=== PATIENT | male | born 1935 | race Caucasian/White ===

== ENCOUNTER 2018-07-20 18:17 | Inpatient (IN) | payer MEDICARE, OTHER ==
--- NOTE | 2018-07-20 18:46 | RAD ---
Chest one view HISTORY: Cough. COMPARISON: 11/01/2010. FINDINGS: Cardiac silhouette is magnified by projection. Pulmonary vasculature is unremarkable. Media stinum is midline with aortic calcification. No lobar consolidation or evidence of pneumothorax. IMPRESSION: Atherosclerosis. No active cardiopulmonary abnormalities are otherwise demonstrated.
[2018-07-20 18:50] LABS: Hemoglobin 11.6 g/dL (14.0-18.0); Mean Corpuscular HGB CONC 33.3 g/dL (32.0-36.0); Mean Corpuscular Hemoglobin 31.2 pg (27.0-31.0); Mean Corpuscular Volume 93.8 fL (78.0-98.0); Mean Platelet Volume 7.3 fL (7.4-10.4); Platelet Count 228 thou/uL (130-400); RBC Distribution Width 12.7 % (11.5-14.5); Red Blood Cell (RBC) Count 3.72 mill/uL (4.70-6.10); White Blood Cell (WBC) Count 8.5 thou/uL (4.8-10.8)
[2018-07-20 19:05] LABS: ALT (SGPT) 29 U/L (8-55); AST (SGOT) 34 U/L (5-34); Albumin 3.5 g/dL (3.4-4.8); Alkaline Phosphatase 152 U/L (40-150); Anion Gap 13 mmol/L (10-20); BUN (Urea Nitrogen) 14 mg/dL (8.4-25.7); Bilirubin, Total 1.6 mg/dL (0.2-1.2); Calc. Creatinine Clearance 0 mL/min (70-130); Calcium 8.7 mg/dL (7.8-10.44); Carbon Dioxide 25 mmol/L (23-31); Chloride 95 mmol/L (98-107); Estimated GFR-MDRD 41; Globulin 2.9 g/dL (2.4-3.5); Glucose 123 mg/dL (83-110); Potassium 4.1 mmol/L (3.5-5.1); Protein, Total 6.4 g/dL (5.8-8.1); Sodium 129 mmol/L (136-145)
[2018-07-20 19:16] LABS: Bilirubin Negative (Negative); Blood, Urine Small (Negative); Clarity CLEAR (Clear); Glucose, Urine (Dipstick) Negative (Negative); Leukocyte Negative (Negative); Nitrite Negative (Negative); Protein, Urine (Dipstick) 100 mg/dL (Neg-Trace); Specific Gravity, Urine 1.013 (1.002-1.036); pH, Urine 7.5 (5.0-9.0)
[2018-07-20 19:20] LABS: Bacteria/HPF None Seen HPF (None Seen); Hyaline Casts/LPF 0-3 HYALINE CAST LPF (0-3 Hyaline); Squamous Epithelial None Seen HPF (0-3); WBC/HPF None Seen HPF (0-3)
[2018-07-20 19:25] LABS: Band 16 % (5-11); Lymphocytes 2 % (21-51); MDiff Complete? YES; Monocytes 2 % (0-10); Neutrophil 80 % (42-75); Platelet Morphology Comment Appears Adequate
[2018-07-20] MEDS ORDERED: Piperacillin/Tazobactam 4.5 GM VIAL ONE (20:39)
[2018-07-20] MEDS ORDERED: Acetaminophen 325 MG TAB PO PRN (23:40)
[2018-07-21 00:08] VITALS: BMI 21.8
[2018-07-21] MEDS: Sodium Chloride 0.45% 1,000 ML IV SCH ×2 (00:21→09:01)
--- NOTE | 2018-07-21 04:29 | HP ---
CHIEF COMPLAINT: Fever. HISTORY OF PRESENT ILLNESS: This patient is an 82-year-old male who presented via the emergency department. The patient was at his brother's today when he started having some shaking. The family thought it was simply emotional because of the , but when he got home, they checked his temperature, and it was over 102. He received some Tylenol and some Coricidin and subsequent check, his temperature got up over 103. They subsequently brought him to the emergency department. The patient reports that he has started coughing today. He has no chest pain, shortness of breath, or sputum production. He denies any other symptoms to account for any type of infection. He does admit that he has not been eating and drinking quite as well over the last couple of days. REVIEW OF SYSTEMS: Notable for frequent muscle cramps. He also reports that he has some intermittent edema, and he usually takes a diuretic, but is unable to do so on days when he has more social activities. All other systems reviewed. All pertinent positives and negatives noted in history of present illness. PAST MEDICAL HISTORY: Hypertension, hyperlipidemia, BPH, history of prior gallstone pancreatitis. PAST SURGICAL HISTORY: Cholecystectomy, skin cancer removed from his lower lip. FAMILY HISTORY: Mother had Alzheimer's. His brother that just had dementia. His father had cancer. SOCIAL HISTORY: No tobacco, alcohol, or drugs. He lives independently. His is . He is a DNAR, and his daughter is his surrogate decision maker. ALLERGIES: NIACIN. MEDICATIONS: 1. Hydralazine 25 mg t.i.d. 2. Metoprolol 25 mg b.i.d. 3. Atorvastatin 40 mg daily. 4. Lisinopril 5 mg daily. 5. Tamsulosin 0.4 mg daily. 6. Lasix 20 mg every Monday, Monday, and Monday. 7. Vitamin D 1000 units daily. 8. Saw palmetto 1000 mg t.i.d. PHYSICAL EXAMINATION: VITAL SIGNS: T-max in the ER is 102.8, most recent is 99.3, BP is 135/65, pulse 84, respirations 20, O2 saturation 97% on room air. GENERAL APPEARANCE: Age-appropriate male, in no distress. He is awake, alert, oriented, pleasant, and cooperative. He is slightly erythematous in the face. HEENT: Pupils are slightly constricted but are reactive and symmetric. There are no OP lesions. NECK: Supple and symmetric. HEART: Regular rate and rhythm without murmurs, gallops, or rubs. LUNGS: Clear to auscultation bilaterally with no wheezes or rales. ABDOMEN: Soft, nontender, and nondistended. Positive bowel sounds. No masses and no organomegaly. EXTREMITIES: No cyanosis, clubbing, or edema. SKIN EXAM: Warm and dry. No erythematous lesions. NEUROLOGIC: The patient appears to be fully intact with no focal deficits. PSYCH: The patient has normal affect and normal behavior. LABORATORY DATA: White count 8.5, hemoglobin 11.6, and platelets 228. There are 80% neutrophils and 16% bands with 2% lymphocytes. Sodium 129, potassium 4.1, chloride 95, BUN 14, creatinine 1.61, and glucose 123. Total bilirubin is 1.6, alkaline phosphatase 152. Urinalysis shows 11 to 20 red cells, small blood, trace ketones, negative for white cells or bacteria. Flu screen is negative. Chest x-ray negative other than some atherosclerosis. EKG shows some sinus tach. IMPRESSION PLAN: 1. Febrile illness. Given the high temperatures, I would be concerning for possible viral illness. However, he has 16% bands, making this more concerning for bacterial infection and sepsis picture. The patient has received vancomycin and Zosyn in the emergency department. We will continue with those. We will give him some fluids and repeat his chest x-ray in the morning. Given his cough, certainly suspicious that this may be developing pneumonia. We will also follow up on blood cultures. 2. Hyponatremia. Sodium is at 129. I do not know what his baseline is, but presumably normal. He admits to not eating and drinking well over the last couple of days and his creatinine level is up a bit. We will see how he responds to fluid resuscitation. 3. Acute renal injury. It is unclear what the patient's baseline creatinine is. Assuming it is normal, then he has acute kidney injury and acute renal insufficiency. His GFR now would suggest chronic kidney disease stage 3, if this is in fact chronic. 4. Hypertension. We will continue with his hydralazine, metoprolol, and lisinopril. 5. BPH. Continue usual home medication regimen with tamsulosin. 6. Hyperlipidemia. Continue atorvastatin. Job ID: [id number]
[2018-07-21 07:00] LABS: Anion Gap 11 mmol/L (10-20); BUN (Urea Nitrogen) 18 mg/dL (8.4-25.7); Calc. Creatinine Clearance 29 mL/min (70-130); Calcium 8.3 mg/dL (7.8-10.44); Carbon Dioxide 26 mmol/L (23-31); Chloride 97 mmol/L (98-107); Estimated GFR-MDRD 39; Glucose 125 mg/dL (83-110); Potassium 4.1 mmol/L (3.5-5.1); Sodium 130 mmol/L (136-145)
[2018-07-21 08:46] LABS: Band 17 % (5-11); Hemoglobin 10.6 g/dL (14.0-18.0); Lymphocytes 8 % (21-51); MDiff Complete? YES; Mean Corpuscular HGB CONC 33.9 g/dL (32.0-36.0); Mean Corpuscular Hemoglobin 31.3 pg (27.0-31.0); Mean Corpuscular Volume 92.4 fL (78.0-98.0); Mean Platelet Volume 7.8 fL (7.4-10.4); Monocytes 4 % (0-10); Myelocyte 1 % (0-0); Neutrophil 70 % (42-75); Platelet Count 185 thou/uL (130-400); RBC Distribution Width 12.7 % (11.5-14.5); Red Blood Cell (RBC) Count 3.39 mill/uL (4.70-6.10); White Blood Cell (WBC) Count 12.2 thou/uL (4.8-10.8)
[2018-07-21] MEDS: Enoxaparin Sodium 40 MG/0.4 ML SYRINGE SC SCH (08:59)
[2018-07-21] MEDS: Lisinopril 5 MG TAB PO SCH (08:59)
[2018-07-21] MEDS ORDERED: hydrALAZINE 25 MG TAB PO SCH (09:00)
[2018-07-21] MEDS ORDERED: Metoprolol Tartrate 25 MG TAB PO SCH (09:00)
[2018-07-21] MEDS ORDERED: Tamsulosin HCl 0.4 MG CAP PO SCH (09:00)
--- NOTE | 2018-07-21 11:01 | RAD ---
EXAM: Two views chest PROVIDED CLINICAL HISTORY: Sepsis COMPARISON: 07/20/2018 FINDINGS: Cardiac and mediastinal silhouette appears within normal limits. Lungs appear free of significant opa city. No pleural fluid or pneumothorax apparent. Vascular calcification is noted. IMPRESSION: No evidence for an acute cardiopulmonary process.
--- NOTE | 2018-07-21 12:03 | CT ---
EXAM: CT Abdomen Pelvis W Con PROVIDED CLINICAL HISTORY: Fever COMPARISON: 12/14/2010 FINDINGS: There are small bilateral pleural effusions. The liver, spleen, pancreas, kidneys and adrenal glands demonstrate no acute abnormality. Changes of prior cholecystectomy noted, with minimal pneumobilia presumably reflecting prior sphincterotomy. There is a heterogeneous solid mass present within the retroperitoneum right of midline measuring abo ut 6.3 x 4.9 cm in greatest transverse dimensions. This abuts and is inseparable from the junction of the descending and horizontal portions of the duodenum. There is no evidence for bowel obstruction. No inflammatory fat stranding, free fluid or free air riky arent. Extensive vascular calcifications are seen. The osseous structures demonstrate no concerning osteoblastic or osteolytic lesions. IMPRESSION: 6.3 cm solid retroperitoneal soft tissue mass as described above. Differential considerations would i nclude lymphoma, primary retroperitoneal malignancy and exophytic mass arising from the duodenum.
--- NOTE | 2018-07-21 13:06 | PDOC.PN ---
- Subjective Encounter Start Date: 07/21/18 Encounter Start Time: 13:04 Subjective: feels a little better.denies any N/V/D/abd pain/Wt loss. -: no difficulty w urination but family reports h/o prostate issues -: no more fever.feels weak - Objective Resuscitation Status - Order Detail: 07/20/18 23:40 Resuscitation Status Routine Resuscitation Status: DNAR: NO Resuscitation Discussed with: patient MAR Reviewed: Yes Vital Signs & Weight: Vital Signs (12 hours) Temp Pulse Resp BP BP Pulse Ox 07/21/18 09:00 73 149/71 H 07/21/18 08:59 73 149/71 H 07/21/18 07:43 97.8 F 73 16 149/71 H 97 07/21/18 05:40 97.7 F 86 16 137/67 95 Weight Weight 139 lb 5 oz Result Diagrams: 07/23/18 06:06 07/22/18 06:06 Additional Labs: Microbiology 07/20/18 18:25 Nasal swab Influenza Types A,B Direct EIA - Final 07/20/18 18:28 Venous blood - Right Arm Blood Culture - Preliminary Gram Negative [facility] 07/20/18 18:28 Venous blood - Left Arm Blood Culture - Preliminary Gram Negative [facility] Radiology Reviewed by me: Yes (CT-4X6 cm Retroperitoneal mass) Phys Exam - Physical Examination Constitutional: NAD (pale and weak loking but awake ,alert and walking in room) HEENT: PERRLA, moist MMs, sclera anicteric, oral pharynx no lesions Neck: no nodes, no JVD, supple, full ROM Respiratory: no wheezing, no rales, no rhonchi, clear to auscultation bilateral Cardiovascular: RRR, no significant murmur Gastrointestinal: soft, non-tender, no distention, positive bowel sounds Musculoskeletal: no edema, pulses present Neurological: non-focal, normal sensation, moves all 4 limbs Psychiatric: normal affect, A&O x 3 Skin: no rash Dx/Plan (1) Enterococcal bacteremia Code(s): R78.81 - BACTEREMIA; B95.2 - ENTEROCOCCUS THE CAUSE OF DISEASES CLASSIFIED ELSEWHERE Status: Acute Comment: sensitive to meropenam that Pt is receiving.? source.May be Biliary. IMPROVING (2) Sepsis Code(s): A41.9 - SEPSIS, UNSPECIFIED ORGANISM Status: Acute Comment: IMPROVING.ON ANTIBIOTICS (3) Retroperitoneal mass Code(s): R19.00 - INTRA-ABD AND PELVIC SWELLING, MASS AND LUMP, UNSP SITE Status: Acute Comment: Bx 07/23 (4) HTN (hypertension) Code(s): I10 - ESSENTIAL (PRIMARY) HYPERTENSION Status: Chronic (5) BPH (benign prostatic hyperplasia) Code(s): N40.0 - BENIGN PROSTATIC HYPERPLASIA WITHOUT LOWER URINRY TRACT SYMP Status: Chronic Comment: STABLE - Plan plan discussed w/ family, continue antibiotics, PT/OT, out of bed/ambulate, DVT proph w/SCDs Add Meroepnam for Enterococcal bacteremia. Xonsult ID.? source.GI Vs Urinar -: CT done to check for GI causes showed RP mass.?malignancy.pt asymptomatic -: will consult Oncology.? needs Biopsy Vs EGD to further assess as close to -: duodenum. -: Add OT,PT.IVF. AM labs. Guarded prognosis * . Review of Systems - Review of Systems Constitutional: fever, weakness, malaise ENT: negative: Ear Pain, Ear Discharge, Nose Pain, Nose Discharge, Nose Congestion, Mouth Pain, Mouth Swelling, Throat Pain, Throat Swelling, Other Respiratory: negative: Cough, Dry, Shortness of Breath, Hemoptysis, SOB with Excertion, Pleuritic Pain, Sputum, Wheezing Cardiovascular: negative: chest pain, palpitations, orthopnea, paroxysmal nocturnal dyspnea, edema, light headedness, other Gastrointestinal: negative: Nausea, Vomiting, Abdominal Pain, Diarrhea, Constipation, Melena, Hematochezia, Other Genitourinary: negative: Dysuria, Frequency, Incontinence, Hematuria, Retention , Other Musculoskeletal: negative: Neck Pain, Shoulder Pain, Arm Pain, Back Pain, Hand Pain, Leg Pain, Foot Pain, Other Skin: negative: Rash, Lesions, Hugo, Bruising, Other - Medications/Allergies Allergies/Adverse Reactions: Allergies Allergy/AdvReac Type Severity Reaction Status Date / Time niacin Allergy Verified 07/21/18 00:09 Medications: Current Medications Acetaminophen (Tylenol) 650 mg PO Q4H PRN PRN Reason: Headache/Fever/Mild Pain (1-3) Last Admin: 07/21/18 00:18 Dose: 650 mg Atorvastatin Calcium (Lipitor) 40 mg PO HS ANNABELLA Atorvastatin Calcium (Lipitor) 40 mg PO HS ANNABELLA Cholecalciferol (Vitamin D3) 1,000 units PO DAILY [facility] Enoxaparin Sodium (Lovenox) 40 mg SC 0900 [facility] Last Admin: 07/21/18 08:59 Dose: 40 mg Hydralazine HCl (Apresoline) 25 mg PO TID [facility] Last Admin: 07/21/18 09:00 Dose: 25 mg Hydralazine HCl (Apresoline) 25 mg PO TID [facility] Sodium Chloride (1/2 Normal Saline) 1,000 mls @ 100 mls/hr IV .Q10H [facility] Last Admin: 07/21/18 09:01 Dose: 1,000 mls Meropenem 1 gm/ Device 50 mls @ 200 mls/hr IVPB [id number] [facility] Lisinopril (Zestril) 5 mg PO DAILY [facility] Last Admin: 07/21/18 08:59 Dose: 5 mg Metoprolol Tartrate (Lopressor) 12.5 mg PO BID [facility] Last Admin: 07/21/18 09:00 Dose: 12.5 mg Metoprolol Tartrate (Lopressor) 12.5 mg PO BID [facility] Non-Formulary Medication (Saw [place] [Saw [place]]) 1 cap PO TID [facility] Tamsulosin HCl (Flomax) 0.4 mg PO DAILY [facility] Last Admin: 07/21/18 09:00 Dose: 0.4 mg Tamsulosin HCl (Flomax) 0.4 mg PO DAILY [facility]
[2018-07-21] MEDS: MEROPENEM 1 GM/50 ML 1 GM in Premix Bag 1 BAG IVPB SCH ×2 (14:32→22:23)
[2018-07-21] MEDS: hydrALAZINE 25 MG TAB PO SCH ×2 (14:32→22:21)
[2018-07-21] MEDS ORDERED: SAW PALMETTO PO SCH (15:00)
[2018-07-21] MEDS ORDERED: ISOVUE-370 76%-LOCM 1 ML ONE (15:17)
--- NOTE | 2018-07-21 18:48 | CON ---
DATE OF CONSULTATION: 07/21/2018 REASON FOR CONSULTATION: Bacteremia and retroperitoneal mass. HISTORY OF PRESENT ILLNESS: The patient is 82 years old, who has a history of hypertension, BPH, gallstone pancreatitis, and was usually treated at the [place], and developed acute onset of chills with fever pretty much the day before admission, brought to the emergency room. He had some cough associated with it as well. No headaches, visual symptoms, sore throat, odynophagia, or dysphagia. No back pain. No abdominal pain. No genitourinary symptoms. No joint symptoms or skin disorder. PAST MEDICAL HISTORY: 1. Hypertension. 2. Hyperlipidemia. 3. BPH. 4. Gallstone pancreatitis. PAST SURGICAL HISTORY: 1. Cholecystectomy few years ago. 2. Skin cancer removal. FAMILY HISTORY: Alzheimer's. SOCIAL HISTORY: Never smoker. No significant alcoholic beverage use. Lives in [place], and retired. He used to be a salesman. ALLERGIES: NIACIN. CURRENT MEDICATIONS: 1. Tylenol. 2. Lipitor. 3. Lovenox. 4. Zestril. 5. Meropenem. 6. Tamsulosin. PHYSICAL EXAMINATION: VITAL SIGNS: T-max 99.4. Other vital signs are not particularly remarkable. SKIN: No skin abnormalities. The patient has a peripheral IV access. No Quintana catheter. No lymphadenopathy. HEENT: Ocular movements conjugate. Nasal passages patent. Ear exam normal. Oral cavity normal except for absence of teeth. NECK: Supple. No jugular vein distention or carotid bruits. No thyromegaly. LUNGS: Symmetric with clear breath sounds. BACK: No back tenderness. HEART: S1, S2. Regular rate. No S3, S4, or murmurs. ABDOMEN: Soft, mildly distended, but not tender. No ascites. No organomegaly noted. No bladder distention. GENITAL: Normal. EXTREMITIES: No joint inflammatory activity. Pulses 1+ in dorsalis pedis. Plantar responses are flexor. No clonus. Strength in upper and lower extremities is 5/5. Cognitive function appears to be intact. LABORATORY DATA: White cell count is 8.5 and now 12.2, hemoglobin 10.6, MCV 92, platelets 185, 80% neutrophils, and 16% bands on admission. Chemistry; sodium 129, creatinine 1.6, glucose 123, calcium 8.7, bilirubin 1.6, transaminases normal, alkaline phosphatase 152, albumin 3.5. Urinalysis with 11-20 rbc's. Microbiology with Enterobacter species, 2/2 sets of blood cultures. Influenza A and B negative. Urine culture, no growth at 12 hours. IMAGING STUDY: We have a chest x-ray, which was normal; and there is an abdomen and pelvis CT with a 6.3-cm retroperitoneal soft tissue mass close to the small bowel. ASSESSMENT: 1. Previous history of gallstone pancreatitis. 2. Recent episodes of hematochezia, which he has not had any workup for yet. 3. Sudden onset of chills with bacteremia due to Enterobacter. 4. Retroperitoneal mass. DISCUSSION: Differential diagnosis includes inflammatory mass associated with the duodenum and possibly a perforated ulcer versus a malignancy or benign tumor. The mass is very close to the inferior vena cava. There is no direct connection to the vessel along the cuts provided in the CT scan as there is with the duodenum, so it seems like the duodenum is more likely origin of this process. Leiomyoma or a malignant tumor or maybe a phlegmon would be considered the likely scenario here. It does not seem to be associated with the spine or with the kidneys. A percutaneous biopsy has been ordered, CT guided. Continue current antimicrobial until we have susceptibility results for this organism. No other sites of involvement are apparent at this time, and it appears that this is the likely origin of the bacteremia. The other approach would be to do an endoscopy to see if there are any lesions in the mucosal side of the duodenum, and finally laparoscopic approach might be necessary depending on the results of the percutaneous attempt. Job ID: [id number]
[2018-07-21] MEDS ORDERED: Atorvastatin Calcium 40 MG TAB PO SCH (21:00)
--- NOTE | 2018-07-21 22:07 | CON ---
DATE OF CONSULTATION: REASON FOR CONSULTATION: Retroperitoneal mass. HISTORY OF PRESENT ILLNESS: An 82-year-old male with hypertension and BPH, presenting to the hospital with fever. The patient was at his brother's yesterday and when he got home, had a temperature of 101, took Tylenol and it spiked up to 103, so he was brought into the ER. He has not had any fever since admission to the hospital and he states that he feels well. He denies any nausea, vomiting, shortness of breath, or productive cough. He has chronic alternating diarrhea and constipation that is not severe. Upon admission, to the hospital, he had a CT abdomen and pelvis that showed a 6.3 x 4.9 cm heterogeneous solid mass in the retroperitoneum, right of midline that abuts and is inseparable from the junction of the descending and horizontal portions of the duodenum. The patient does state that he had abdominal pain that comes and goes every few weeks in the right lower to right upper abdomen. He also states he has had blood in his stool and black stools for the last couple of months. His last colonoscopy was over 20 years ago. He denies any drenching night sweats or any weight loss over the last few months. REVIEW OF SYSTEMS: A ten-point review of systems negative except as per HPI. PAST MEDICAL HISTORY: Hypertension, hyperlipidemia, BPH, and postop pancreatitis. PAST SURGICAL HISTORY: Cholecystectomy, lower lip skin cancer removal. FAMILY HISTORY: Unknown metastatic cancer in his father. SOCIAL HISTORY: Former cigar user, but quit 50 years ago. No alcohol. ALLERGIES: NIACIN. CURRENT MEDICATIONS: Reviewed. PHYSICAL EXAMINATION: VITAL SIGNS: Temperature 97.8, pulse 69, blood pressure 108/62, respirations 16, saturating 97% on room air. GENERAL APPEARANCE: The patient is lying in bed, in no acute distress and appears stated age. HEENT: Normocephalic and atraumatic. CARDIAC: S1 and S2. Regular rhythm and rate. LUNGS: Clear to auscultation bilaterally. ABDOMEN: Soft, nondistended, and nontender. EXTREMITIES: No edema. SKIN: No rash. NEUROLOGIC: Cranial nerves 2 through 12 are grossly intact and otherwise nonfocal. LYMPHATICS: No palpable lymphadenopathy in the cervical, axillary, or inguinal chains. PSYCHIATRIC: Awake, alert, and oriented x3. LABORATORY DATA: White blood cells 12.2, hemoglobin 10.6, platelets 185, neutrophils 70% with band neutrophils 17%. Sodium 130, potassium 4.1, chloride 97, carbon dioxide 26, BUN 18, creatinine 1.70, glucose 125. IMAGING DATA: CT abdomen and pelvis with contrast shows a 6.3 cm solid retroperitoneal soft tissue mass that abuts and is inseparable from the junction of the descending and horizontal portions of the duodenum. ASSESSMENT AND PLAN: An 82-year-old male presenting with fever and subsequently found to have a 6.3 cm retroperitoneal mass on CT. The patient is asymptomatic from this mass, does not have any pain in his back, although he does have mild abdominal pain on the right side that comes and goes every few weeks. He has also had blood in the stool and dark black stools for the last couple of months. This mass is accessible via CT-guided biopsy and I have arranged this with Interventional Radiology, which should hopefully be done on Monday. The patient likely also needs a colonoscopy plus or minus an upper endoscopy due to blood in his stool. We will follow up with the patient after the biopsy. Thank you for this consult. Job ID: [id number]
[2018-07-21] MEDS: Metoprolol Tartrate 25 MG TAB PO SCH (22:20)
[2018-07-21] MEDS: Atorvastatin Calcium 40 MG TAB PO SCH (22:21)
[2018-07-22] MEDS: Sodium Chloride 0.45% 1,000 ML IV SCH ×4 (05:55→17:12)
[2018-07-22] MEDS: Metoprolol Tartrate 25 MG TAB PO SCH ×2 (05:56→20:00)
[2018-07-22] MEDS: MEROPENEM 1 GM/50 ML 1 GM in Premix Bag 1 BAG IVPB SCH ×3 (05:56→20:00)
[2018-07-22 06:33] LABS: #Eosinphils 0.1 thou/uL (0.0-0.7); #Lymphocytes 0.7 thou/uL (1.20-3.40); #Monocytes 0.5 thou/uL (0.11-0.59); #Neutrophils 7.7 thou/uL (1.40-6.50); %Basophils 0.4 % (0.0-1.0); %Eosinophils 0.9 % (0.0-10.0); %Lymphocytes 8.1 % (21.0-51.0); %Monocytes 5.2 % (0.0-10.0); %Neutrophils 85.5 % (42.0-75.0); Hemoglobin 10.8 g/dL (14.0-18.0); Mean Corpuscular HGB CONC 32.8 g/dL (32.0-36.0); Mean Corpuscular Hemoglobin 31.2 pg (27.0-31.0); Mean Corpuscular Volume 95.1 fL (78.0-98.0); Mean Platelet Volume 8.4 fL (7.4-10.4); Platelet Count 167 thou/uL (130-400); RBC Distribution Width 12.9 % (11.5-14.5); Red Blood Cell (RBC) Count 3.45 mill/uL (4.70-6.10); White Blood Cell (WBC) Count 9.1 thou/uL (4.8-10.8)
[2018-07-22 06:44] LABS: Anion Gap 12 mmol/L (10-20); BUN (Urea Nitrogen) 20 mg/dL (8.4-25.7); Calc. Creatinine Clearance 34 mL/min (70-130); Calcium 8.4 mg/dL (7.8-10.44); Carbon Dioxide 23 mmol/L (23-31); Chloride 100 mmol/L (98-107); Estimated GFR-MDRD 46; Glucose 85 mg/dL (83-110); Potassium 4.1 mmol/L (3.5-5.1); Sodium 131 mmol/L (136-145)
[2018-07-22] MEDS: Diabetic Tussin 200 MG/10 ML UDCUP PO PRN ×3 (06:45→20:26)
[2018-07-22] MEDS ORDERED: Ondansetron HCl/PF 4 MG/2 ML Vial IVP PRN ×2 (09:47→11:37)
[2018-07-22] MEDS ORDERED: Promethazine HCl 25 MG/ML VIAL IM PRN (11:37)
[2018-07-22] MEDS ORDERED: Promethazine HCl 25 MG/ML VIAL SLOW IVP PRN (11:37)
--- NOTE | 2018-07-22 13:21 | CON ---
DATE OF CONSULTATION: REASON FOR CONSULT: Melena. HISTORY OF PRESENT ILLNESS: Mr. Ferrara is an 82-year-old, I was asked to see by Dr. Hazel for history of melena. The history was obtained from him and his daughter. Apparently, maybe over the past several months he has had a little bit more indigestion. Occasionally, he has had a twinge of right-sided abdominal pain that will radiate up to the right upper quadrant, but this has not really been related with meals or activity. He has had a diminished appetite, but otherwise he has been doing quite well. He was at his brother's yesterday when he began to have chills and rigors. He got home and he had fever. They gave him Tylenol twice and the fever went up even higher to 103, so he was brought to the emergency room here. He was found to have mild anemia with a hemoglobin of 11.6, white count of 8, 8% segs and 16% bands. Comprehensive metabolic profile was normal, except for a sodium of 129, bilirubin was 1.6. AST and ALT . Alkaline phosphatase was 152. He had blood cultures that ultimately grew out Enterobacter species, final ID is pending. He was started on broad-spectrum antibiotics, and he had a CAT scan of the abdomen and pelvis, which showed a retroperitoneal mass about 6 cm in size between the right kidney and the inferior portion of the C-loop of the duodenum. The radiologist felt this was possibly arising from the duodenum. The patient notes he had been having some dark stools for several months, but does acknowledge he is having indigestion and he was taking some Pepto-Bismol as well. He has had a colonoscopy in the past, but that was about 20 years ago. Presently, he is without complaints. He has been afebrile. He has been seen by Oncology and Infectious Disease. PAST MEDICAL HISTORY: Hypertension, hyperlipidemia, BPH, prior history of gallstone pancreatitis. He states it was 2013 or 2014 at this hospital, maybe sometime in the 2009 at this [facility], but I can find no record of that. 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 FAMILY HISTORY: Negative for GI malignancies. SOCIAL HISTORY: He has not smoked in 40 years. He has not drank in 40 years. He lives in [place]. He is retired. ALLERGIES: NIACIN CAUSED HIM FLUSHING AND IRRITATED SKIN. MEDICATIONS: Present medications: 1. Tylenol. 2. Lipitor. 3. Lovenox. 4. Zestril. 5. Meropenem. 6. Tamsulosin. Medications at home: 1. Saw palmetto. 2. Furosemide. 3. Vitamin D3. 4. Atorvastatin. 5. Metoprolol. 6. Tamsulosin. 7. Lisinopril. 8. Hydralazine. 9. Some Pepto-Bismol. 10. He denies taking NSAIDs. REVIEW OF SYSTEMS: CONSTITUTIONAL: Negative for weight loss. Negative for fevers, rigors, or chills before this episode yesterday. : Negative for dysuria, frequency, or urgency. PULMONARY: Positive for slight cough a day or 2 ago. HEENT: Negative for dysphagia or odynophagia. GI: Positive for reflux. Negative for hematemesis. Positive for dark stools intermittently, but normal over the past couple of days. Negative for hematochezia. PULMONARY: Negative for shortness of breath, dyspnea on exertion, orthopnea. EXTREMITIES: Occasionally, he has trace edema in the legs. SKIN: Negative for skin lesions. PSYCHIATRIC: Negative. ENDOCRINE: Negative. PHYSICAL EXAMINATION: VITAL SIGNS: Temperature here 99 today, pulse 82, blood pressure 145/72. NECK: Supple without any adenopathy. Oropharynx without lesions. LUNGS: Clear. HEART: Regular rhythm. ABDOMEN: Soft and nontender without rebound or guarding. There is no palpable hepatosplenomegaly. There are no masses. There is no CVA tenderness. There is no inguinal adenopathy. EXTREMITIES: No clubbing, cyanosis, or edema. RECTAL: Deferred. LABORATORY DATA: On admission, sodium 129, potassium 4.1, chloride 95, bicarb 25, BUN 14, creatinine 1.61, glucose 123, lactic acid 1.1, bilirubin 1.6. AST and ALT were 34 and 29. Alkaline phosphatase was 152. Liver functions tests have not been repeated. White count was 8.5 on the night of admission, the next morning it was 12.2; hemoglobin was 10.6 and today 10.8; MCV was normal; bands were 17% yesterday, no bands recorded today. IMAGING STUDIES: CAT scan of the abdomen and pelvis showed retroperitoneal mass as noted in HPI. I have reviewed those films, at 6.3 cm, per Radiology, possibly involving or abutting the third and fourth portion of the duodenum. No evidence of biliary involvement. My viewing, the biliary tree is nondilated. ASSESSMENT: This is an elderly gentleman who came in with rigors and chills, and was found to be bacteremic with gram-negative organisms. He has a retroperitoneal mass that is in the region of the third and fourth portion of the duodenum, but is not definitively involving that. He does have a prior history of pancreatitis and cholecystectomy that apparently performed at this hospital, but I can find no records related to that here, even looking just under his date and last name. My viewing on the films, it appeared there maybe some air in the biliary tree on his CAT scan. We will have to confirm that with Radiology. It is unclear what previous surgeries he had, but apparently when he has pancreatitis, he came back to the hospital shortly after that and had a second surgery. Concern will be that he has a primary duodenal lesion that is possibly causing melena and bleeding, although this lesion maybe not involved with the duodenum at all. In light of the air in the biliary tree, the sepsis could have been from the biliary tree. RECOMMENDATIONS: 1. EGD today with enteroscopy if necessary. 2. Repeat liver function tests. 3. Agree with antibiotics. 4. We will review his imaging studies with Radiology for the possibility of a biliary source of infection. Job ID: [id number]
[2018-07-22] MEDS: guaiFENesin ER 600 MG TAB PO SCH ×2 (13:32→19:59)
[2018-07-22] MEDS: Tamsulosin HCl 0.4 MG CAP PO SCH (13:32)
[2018-07-22] MEDS: hydrALAZINE 25 MG TAB PO SCH ×3 (13:33→19:59)
--- NOTE | 2018-07-22 13:56 | PDOC.PN ---
- Subjective Encounter Start Date: 07/22/18 Encounter Start Time: 13:56 Subjective: feels well. s/p EGD. -: reports that he was"living on Pepro-bismol" for months -: for acid reflux - Objective Resuscitation Status - Order Detail: 07/20/18 23:40 Resuscitation Status Routine Resuscitation Status: DNAR: NO Resuscitation Discussed with: patient GERRY Reviewed: Yes Vital Signs & Weight: Vital Signs (12 hours) Temp Pulse Resp BP BP BP Pulse Ox 07/22/18 13:33 80 194/82 H 07/22/18 12:00 98.1 F 80 18 191/89 H 184/88 H 97 07/22/18 08:37 97 07/22/18 08:00 97.9 F 79 19 155/74 H 97 07/22/18 04:00 97.6 F 82 18 145/72 H 97 Weight Weight 139 lb 5 oz I&O: 07/21/18 07/22/18 07/23/18 06:59 06:59 06:59 Intake Total 1530 Output Total 6500 Balance -4970 Result Diagrams: 07/22/18 06:06 07/22/18 06:06 Additional Labs: Microbiology 07/20/18 Unknown Urine voided Urine Culture - Final NO GROWTH AT 36 HOURS 07/20/18 18:25 Nasal swab Influenza Types A,B Direct EIA - Final 07/20/18 Unknown Urine voided Urine Culture - Preliminary NO GROWTH AT 12 HOURS 07/20/18 18:28 Venous blood - Right Arm Blood Culture - Preliminary Enterobacter species 07/20/18 18:28 Venous blood - Left Arm Blood Culture - Preliminary Gram Negative [facility] Tests 07/20/18 07/21/18 07/22/18 18:28 05:53 06:06 Creatinine 1.61 H 1.70 H 1.47 H Phys Exam - Physical Examination Constitutional: NAD HEENT: PERRLA, moist MMs, sclera anicteric, oral pharynx no lesions Neck: no nodes, no JVD, supple, full ROM Respiratory: no wheezing, no rales, no rhonchi, clear to auscultation bilateral Cardiovascular: RRR, no significant murmur Gastrointestinal: soft, non-tender, no distention, positive bowel sounds Musculoskeletal: no edema, pulses present Neurological: non-focal, normal sensation, moves all 4 limbs Psychiatric: normal affect, A&O x 3 Skin: no rash Dx/Plan (1) Enterococcal bacteremia Code(s): R78.81 - BACTEREMIA; B95.2 - ENTEROCOCCUS THE CAUSE OF DISEASES CLASSIFIED ELSEWHERE Status: Acute (2) Sepsis Code(s): A41.9 - SEPSIS, UNSPECIFIED ORGANISM Status: Acute (3) Retroperitoneal mass Code(s): R19.00 - INTRA-ABD AND PELVIC SWELLING, MASS AND LUMP, UNSP SITE Status: Acute (4) HTN (hypertension) Code(s): I10 - ESSENTIAL (PRIMARY) HYPERTENSION Status: Chronic (5) BPH (benign prostatic hyperplasia) Code(s): N40.0 - BENIGN PROSTATIC HYPERPLASIA WITHOUT LOWER URINRY TRACT SYMP Status: Chronic - Plan continue antibiotics, PT/OT, respiratory therapy, incentive spirometry, DVT proph w/SCDs EGD showed mild esophagitis.? air in biliary system.?source of infection -: RP mass Bx by IR in morning -: HD stable.follow final Cx -: may DC post Bx if stable.HH Vs rehab-pt undecided -: will need OP GI,Oncology follow up. * . Review of Systems - Review of Systems Constitutional: negative: fever, chills, sweats, weakness, malaise, other Respiratory: negative: Cough, Dry, Shortness of Breath, Hemoptysis, SOB with Excertion, Pleuritic Pain, Sputum, Wheezing Cardiovascular: negative: chest pain, palpitations, orthopnea, paroxysmal nocturnal dyspnea, edema, light headedness, other Gastrointestinal: negative: Nausea, Vomiting, Abdominal Pain, Diarrhea, Constipation, Melena, Hematochezia, Other Genitourinary: negative: Dysuria, Frequency, Incontinence, Hematuria, Retention , Other Musculoskeletal: negative: Neck Pain, Shoulder Pain, Arm Pain, Back Pain, Hand Pain, Leg Pain, Foot Pain, Other Neurological: negative: Weakness, Numbness, Incoordination, Change in Speech, Confusion, Seizures, Other - Medications/Allergies Allergies/Adverse Reactions: Allergies Allergy/AdvReac Type Severity Reaction Status Date / Time niacin Allergy Verified 07/21/18 00:09 Medications: Current Medications Acetaminophen (Tylenol) 650 mg PO Q4H PRN PRN Reason: Headache/Fever/Mild Pain (1-3) Last Admin: 07/21/18 00:18 Dose: 650 mg Atorvastatin Calcium (Lipitor) 40 mg PO HS [facility] Last Admin: 07/21/18 22:21 Dose: 40 mg Cholecalciferol (Vitamin D3) 1,000 units PO DAILY [facility] Last Admin: 07/22/18 13:32 Dose: 1,000 units Guaifenesin (Mucinex) 600 mg PO Q12HR [facility] Last Admin: 07/22/18 13:32 Dose: 600 mg Guaifenesin (Robitussin Sf) 200 mg PO Q4H PRN PRN Reason: Cough Last Admin: 07/22/18 06:45 Dose: 200 mg Hydralazine HCl (Apresoline) 25 mg PO TID [facility] Last Admin: 07/22/18 13:33 Dose: 25 mg Sodium Chloride (1/2 Normal Saline) 1,000 mls @ 100 mls/hr IV .Q10H [facility] Last Admin: 07/22/18 13:37 Dose: Not Given Meropenem 1 gm/ Device 50 mls @ 200 mls/hr IVPB 0500,1300,2100 [facility] Last Admin: 07/22/18 13:35 Dose: 50 mls Lisinopril (Zestril) 5 mg PO DAILY [facility] Last Admin: 07/21/18 08:59 Dose: 5 mg Metoprolol Tartrate (Lopressor) 12.5 mg PO BID [facility] Last Admin: 07/22/18 05:56 Dose: 12.5 mg Ondansetron HCl (Pacu-Zofran) 4 mg IVP ONE PRN PRN Reason: Nausea/Vomiting Stop: 07/22/18 14:38 Promethazine HCl (Pacu-Phenergan) 6.25 mg SLOW IVP ONE PRN PRN Reason: Nausea/Vomiting Stop: 07/22/18 14:38 Promethazine HCl (Pacu-Phenergan) 6.25 mg IM ONE PRN PRN Reason: Nausea/Vomiting Stop: 07/22/18 14:38 Sodium Chloride (Flush - Normal Saline) 10 ml IVF PRN PRN PRN Reason: Saline Flush Tamsulosin HCl (Flomax) 0.4 mg PO DAILY [facility] Last Admin: 07/22/18 13:32 Dose: 0.4 mg
[2018-07-22] MEDS: Enoxaparin Sodium 40 MG/0.4 ML SYRINGE SC SCH (14:02)
[2018-07-22] MEDS ORDERED: Pantoprazole 40 MG VIAL IVP SCH (14:15)
[2018-07-22] MEDS ORDERED: PROPOFOL 200 MG/20 ML VIAL ONE (15:36)
[2018-07-22] MEDS ORDERED: hydrALAZINE 20 MG/ML VIAL SLOW IVP SCH (15:45)
[2018-07-22] MEDS ORDERED: hydrALAZINE 20 MG/ML VIAL SLOW IVP PRN (15:46)
--- NOTE | 2018-07-22 16:01 | OP ---
DATE OF PROCEDURE: 07/22/2018 PROCEDURE PERFORMED: Esophagogastroduodenoscopy and small bowel enterography. PREOPERATIVE DIAGNOSES: 1. Questionable history of melena. 2. Mass in the retroperitoneum by radiologic features abutting the second and third portions of duodenum. 3. Prior history of biliary pancreatitis with cholecystectomy and previous ERCPs in 2009. This is noted on review of some radiology records, but there is no record list in the patient's chart or anything to be on this admission. POSTOPERATIVE DIAGNOSES: 1. LA grade B erosive esophagitis. No stigmata of bleeding. Some erosions are present. 2. Heme staining in the stomach with lesions visible in forward and retroflexed views. 3. Small sliding hiatal hernia. 4. Normal duodenal bulb. 5. Enterography to the jejunum showed no lesions and clear bile, no extrinsic compression. 6. There was some silk suture at the 1 to 2 o'clock position without reference to the pyloric channel and the etiology of this is unclear. RECOMMENDATIONS: 1. Proceed with retroperitoneal biopsy. 2. We will review records in the office to see if we have any records pertaining to his bout of pancreatitis, what type of surgeries he had. DESCRIPTION OF PROCEDURE: The patient was informed of the risks, benefits, and possible complications of endoscopy including perforation, reaction to medication, and aspiration. Informed consent was obtained. The patient was brought to the endoscopy suite, where he was sedated in gradual fashion. Once he was comfortable, a bite block was placed inside the orifice. The endoscope was advanced through the stomach and the second and third portions of the duodenum and slowly removed. The esophagus was notable for some mild erosive esophagitis with no active bleeding. There was a hiatal hernia noted as well. There were no signs of Bhat's. The stomach was entered and found to be normal, except for some heme staining from the mucosa, but there were no overt lesions, ulcers, AVMs, or erosions. There was an area of suture in the 2 o'clock position up to the pyloric channel. The etiology is unclear. It would be nice to have the previous operative notes from the surgery to find out maybe if he had some type of biliary duct injury, had some type of anastomosis here with the biliary tree as he has air in the biliary tree on his CT scan, although this may have just been from the sphincterotomy. The stomach was normal in forward and retroflexed views. The duodenal bulb was normal. The duodenum was normal in the third and fourth portions. The scope was removed, and a colonoscope was then used to perform enteroscopy down to the proximal jejunum. No masses, lesions, or extrinsic compression were seen in the proximal jejunum and second, third, and fourth portions of the duodenum. The scope was then removed. The patient tolerated the procedure well. There were no complications. RECOMMENDATIONS: The possibility of biliary sepsis needs to be considered as he has air in his biliary tree from previous manipulation at [facility] or possible previous manipulation at surgery. He does have an atypical suture in the antrum of the stomach at the 1 o'clock position just in the pre-pyloric region, although I saw no focus of bile coming from it or opening there. The biliary tree does not appear overly dilated on the CT scan and reviewing that with Radiology. Job ID: [id number]
[2018-07-22] MEDS: Benzonatate 100 MG CAP PO PRN (19:58)
[2018-07-22] MEDS: Atorvastatin Calcium 40 MG TAB PO SCH (20:00)
[2018-07-23] MEDS: MEROPENEM 1 GM/50 ML 1 GM in Premix Bag 1 BAG IVPB SCH ×3 (05:18→21:04)
[2018-07-23] MEDS: Metoprolol Tartrate 25 MG TAB PO SCH ×2 (05:21→21:04)
[2018-07-23] MEDS: Benzonatate 100 MG CAP PO PRN ×3 (05:26→21:02)
[2018-07-23] MEDS: Sodium Chloride 0.45% 1,000 ML IV SCH ×2 (05:28→16:00)
[2018-07-23 06:25] LABS: #Eosinphils 0.1 thou/uL (0.0-0.7); #Lymphocytes 0.6 thou/uL (1.20-3.40); #Monocytes 0.5 thou/uL (0.11-0.59); #Neutrophils 4.8 thou/uL (1.40-6.50); %Eosinophils 2.4 % (0.0-10.0); %Lymphocytes 9.3 % (21.0-51.0); %Monocytes 7.9 % (0.0-10.0); %Neutrophils 80.4 % (42.0-75.0); Mean Corpuscular HGB CONC 33.5 g/dL (32.0-36.0); Mean Corpuscular Hemoglobin 31.5 pg (27.0-31.0); Mean Platelet Volume 7.9 fL (7.4-10.4); Platelet Count 173 thou/uL (130-400); RBC Distribution Width 12.8 % (11.5-14.5)
[2018-07-23 06:31] LABS: INR-International Normal Ratio 0.9; Prothrombin Time 12.7 SEC (12.0-14.7)
[2018-07-23 06:38] LABS: Iron 29 ug/dL (65-175); Iron Binding Capacity, Total 191 mcg/dL (261-462)
[2018-07-23 06:39] LABS: ALT (SGPT) 27 U/L (8-55); AST (SGOT) 38 U/L (5-34); Albumin 2.9 g/dL (3.4-4.8); Alkaline Phosphatase 151 U/L (40-150); Bilirubin, Direct 0.4 mg/dL (0.1-0.3); Bilirubin, Total 0.9 mg/dL (0.2-1.2); Gamma GT (GGT) 48 U/L (12-64); Iron Binding Capacity, Total 188 mcg/dL (261-462); Lipase 29 U/L (8-78); Protein, Total 5.5 g/dL (5.8-8.1)
[2018-07-23] MEDS: guaiFENesin ER 600 MG TAB PO SCH ×2 (08:14→21:03)
[2018-07-23] MEDS: hydrALAZINE 25 MG TAB PO SCH ×3 (08:14→21:03)
[2018-07-23] MEDS: Lisinopril 5 MG TAB PO SCH (08:15)
[2018-07-23] MEDS: Tamsulosin HCl 0.4 MG CAP PO SCH (08:15)
[2018-07-23] MEDS: Pantoprazole 40 MG VIAL IVP SCH (08:16)
[2018-07-23] MEDS ORDERED: Sodium Bicarbonate 2.5 MEQ/5 ML VIAL ONE (13:08)
[2018-07-23] MEDS ORDERED: Midazolam HCl 2 mg/2 ml Vial ONE (13:09)
[2018-07-23] MEDS ORDERED: Fentanyl 100 MCG/2 ML VIAL ONE (13:09)
--- NOTE | 2018-07-23 13:43 | PDOC.PN ---
- Subjective Encounter Start Date: 07/23/18 Encounter Start Time: 13:41 Subjective: feels good. scheduled for RP mass Bx today -: declines any DC needs -: no abd pain.no F/C.No Cough/SOB - Objective Resuscitation Status - Order Detail: 07/20/18 23:40 Resuscitation Status Routine Resuscitation Status: DNAR: NO Resuscitation Discussed with: patient MAR Reviewed: Yes Vital Signs & Weight: Vital Signs (12 hours) Temp Pulse Resp BP BP BP Pulse Ox 07/23/18 12:47 177/81 H 07/23/18 11:43 97.8 F 74 20 178/78 H 97 07/23/18 08:28 97 07/23/18 08:15 74 182/85 H 07/23/18 08:14 74 182/85 H 07/23/18 07:59 98.0 F 74 20 182/85 H 97 07/23/18 05:15 98.4 F 87 18 168/81 H 96 Weight Weight 139 lb 5 oz I&O: 07/22/18 07/23/18 07/24/18 06:59 06:59 06:59 Intake Total 5210 Output Total 7250 -2039 Result Diagrams: 07/23/18 06:06 07/22/18 06:06 Additional Labs: Microbiology 07/20/18 Unknown Urine voided Urine Culture - Final NO GROWTH AT 36 HOURS 07/20/18 18:28 Venous blood - Right Arm Blood Culture - Final Enterobacter cloacae complex 07/20/18 18:28 Venous blood - Left Arm Blood Culture - Final Enterobacter cloacae complex 07/20/18 18:25 Nasal swab Influenza Types A,B Direct EIA - Final Laboratory Tests 07/23/18 07/23/18 07/23/18 06:06 06:06 06:06 Iron 29 L TIBC 191 L % Saturation 15 L AST 38 H Alkaline Phosphatase 151 H Vitamin B12 123 L Folate 6.00 L Phys Exam - Physical Examination Constitutional: NAD HEENT: PERRLA, moist MMs, sclera anicteric, oral pharynx no lesions Neck: no nodes, no JVD, supple, full ROM Respiratory: no wheezing, no rales, no rhonchi, clear to auscultation bilateral Cardiovascular: RRR, no significant murmur Gastrointestinal: soft, non-tender, no distention, positive bowel sounds Musculoskeletal: no edema, pulses present Neurological: non-focal, normal sensation, moves all 4 limbs Psychiatric: normal affect, A&O x 3 Skin: no rash Dx/Plan (1) Enterococcal bacteremia Code(s): R78.81 - BACTEREMIA; B95.2 - ENTEROCOCCUS THE CAUSE OF DISEASES CLASSIFIED ELSEWHERE Status: Acute Comment: sensitive to meropenam that Pt is receiving.? source.May be Biliary (2) Sepsis Code(s): A41.9 - SEPSIS, UNSPECIFIED ORGANISM Status: Acute (3) Retroperitoneal mass Code(s): R19.00 - INTRA-ABD AND PELVIC SWELLING, MASS AND LUMP, UNSP SITE Status: Acute Comment: Bx 07/23 (4) HTN (hypertension) Code(s): I10 - ESSENTIAL (PRIMARY) HYPERTENSION Status: Chronic (5) BPH (benign prostatic hyperplasia) Code(s): N40.0 - BENIGN PROSTATIC HYPERPLASIA WITHOUT LOWER URINRY TRACT SYMP Status: Chronic - Plan continue antibiotics, PT/OT, DVT proph w/SCDs RP mass Bx today.Follow results as an OP -: may DC later today w PO ABx -: will need OP GI f/u for possible ERCP for air in bile duct -: HD stable -: Abx as per ID for DC * . Review of Systems - Review of Systems Constitutional: negative: fever, chills, sweats, weakness, malaise, other ENT: negative: Ear Pain, Ear Discharge, Nose Pain, Nose Discharge, Nose Congestion, Mouth Pain, Mouth Swelling, Throat Pain, Throat Swelling, Other Respiratory: negative: Cough, Dry, Shortness of Breath, Hemoptysis, SOB with Excertion, Pleuritic Pain, Sputum, Wheezing Cardiovascular: negative: chest pain, palpitations, orthopnea, paroxysmal nocturnal dyspnea, edema, light headedness, other Gastrointestinal: negative: Nausea, Vomiting, Abdominal Pain, Diarrhea, Constipation, Melena, Hematochezia, Other Genitourinary: negative: Dysuria, Frequency, Incontinence, Hematuria, Retention , Other Musculoskeletal: negative: Neck Pain, Shoulder Pain, Arm Pain, Back Pain, Hand Pain, Leg Pain, Foot Pain, Other Neurological: negative: Weakness, Numbness, Incoordination, Change in Speech, Confusion, Seizures, Other - Medications/Allergies Allergies/Adverse Reactions: Allergies Allergy/AdvReac Type Severity Reaction Status Date / Time niacin Allergy Verified 07/21/18 00:09 Medications: Current Medications Acetaminophen (Tylenol) 650 mg PO Q4H PRN PRN Reason: Headache/Fever/Mild Pain (1-3) Last Admin: 07/21/18 00:18 Dose: 650 mg Atorvastatin Calcium (Lipitor) 40 mg PO HS [facility] Last Admin: 07/22/18 20:00 Dose: 40 mg Benzonatate (Tessalon) 100 mg PO Q6H PRN PRN Reason: Cough Last Admin: 07/23/18 05:26 Dose: 100 mg Cholecalciferol (Vitamin D3) 1,000 units PO DAILY [facility] Last Admin: 07/23/18 08:13 Dose: 1,000 units Guaifenesin (Mucinex) 600 mg PO Q12HR [facility] Last Admin: 07/23/18 08:14 Dose: 600 mg Guaifenesin (Robitussin Sf) 200 mg PO Q4H PRN PRN Reason: Cough Last Admin: 07/22/18 20:26 Dose: 200 mg Hydralazine HCl (Apresoline) 25 mg PO TID [facility] Last Admin: 07/23/18 08:14 Dose: 25 mg Hydralazine HCl (Apresoline) 10 mg SLOW IVP Q4H PRN PRN Reason: SBP >175 Sodium Chloride (1/2 Normal Saline) 1,000 mls @ 100 mls/hr IV .Q10H [facility] Last Admin: 07/23/18 05:28 Dose: 1,000 mls Meropenem 1 gm/ Device 50 mls @ 200 mls/hr IVPB 0500,1300,2100 [facility] Last Admin: 07/23/18 12:44 Dose: 50 mls Lisinopril (Zestril) 5 mg PO DAILY [facility] Last Admin: 07/23/18 08:15 Dose: 5 mg Metoprolol Tartrate (Lopressor) 12.5 mg PO BID [facility] Last Admin: 07/23/18 05:21 Dose: 12.5 mg Pantoprazole Sodium (Protonix) 40 mg IVP DAILY [facility] Last Admin: 07/23/18 08:16 Dose: 40 mg Sodium Chloride (Flush - Normal Saline) 10 ml IVF PRN PRN PRN Reason: Saline Flush Tamsulosin HCl (Flomax) 0.4 mg PO DAILY [facility] Last Admin: 07/23/18 08:15 Dose: 0.4 mg
--- NOTE | 2018-07-23 14:30 | CT ---
CT-guided retroperitoneal mass biopsy Conscious sedation: 1 mg Versed. Approximately 45 minutes spent with the patient for the procedure. HISTORY: Abnormal CT scan. Retroperitoneal mass. FINDINGS: After explaining the procedure and answering all questions, Limited CT imaging was performe d with patient and left lateral decubitus position. Sterile technique, buffered local anesthesia, CT guidance, conscious sedation, and a lateral approach reviewed carefully advanced the tip of a 17-g auge trocar needle into the right upper retroperitoneal mass. Position was confirmed with CT. A total of 3 18-gauge core biopsy specimens were obtained and submitted to Dr. Lord from pathology t o confirm specimen adequacy. Needle was removed. Postprocedure images show no evidence of complication. Patient tolerated the procedure well and was returned in unchanged condition. IMPRESSION: Technically successful CT-guided retroperitoneal mass biopsy. Pathology is pending.
--- NOTE | 2018-07-23 16:09 | PRG ---
DATE OF SERVICE: 07/23/2018 SUBJECTIVE: The patient had a biopsy of the retroperitoneal mass. He also had EGD. Dr. Godinez did not find any abnormalities in the mucosal side of his duodenum. He did have some erosive esophagitis. There was also a silk suture at 1 to 2 o'clock, unclear clear etiology. He has had no fever or chills. No abdominal pain, diarrhea, or genitourinary symptoms. OBJECTIVE: VITAL SIGNS: Normal. GENERAL: Awake, alert, and oriented. LUNGS: Clear. ABDOMEN: Soft, not distended. : No genitourinary abnormalities. LABORATORY DATA: White cell count 6.0, hemoglobin 11, platelets 173. Creatinine 1.47, which is lower than admission. Bilirubin was 1.6, now 0.9. AST was 34, now is 38. Alkaline phosphatase 152 and 151. Microbiology with Enterobacter cloacae, which has a broad susceptibility profile including quinolones. ASSESSMENT AND DISCUSSION: History of gallstone pancreatitis and previous biliary tract complications, which required ERCP and papillotomy; episodes of hematochezia; esophagitis per EGD; bacteremia with Enterobacter cloacae and retroperitoneal mass. The pathology is pending after the retroperitoneal biopsy. Dr. Godinez was concerned of possibility of cholangitis. We will see what the pathology shows and then how it ties in ties in with the bacteremia. Probably, he would be able to be transitioned to oral quinolone. Job ID: [id number]
[2018-07-23] MEDS: Atorvastatin Calcium 40 MG TAB PO SCH (21:03)
[2018-07-23] MEDS: Diabetic Tussin 200 MG/10 ML UDCUP PO PRN (21:04)
[2018-07-24] MEDS: MEROPENEM 1 GM/50 ML 1 GM in Premix Bag 1 BAG IVPB SCH ×2 (05:04→12:29)
[2018-07-24] MEDS: Lisinopril 5 MG TAB PO SCH (08:35)
[2018-07-24] MEDS: hydrALAZINE 25 MG TAB PO SCH ×2 (08:36→14:34)
[2018-07-24] MEDS: guaiFENesin ER 600 MG TAB PO SCH (08:36)
[2018-07-24] MEDS: Tamsulosin HCl 0.4 MG CAP PO SCH (08:37)
[2018-07-24] MEDS: Metoprolol Tartrate 25 MG TAB PO SCH (08:37)
[2018-07-24] MEDS: Pantoprazole 40 MG VIAL IVP SCH (08:37)
[2018-07-24] MEDS ORDERED: Cyanocobalamin 1000 MCG/ML VIAL IM SCH (12:15)
[2018-07-24] MEDS ORDERED: Amlodipine 5 MG TAB PO SCH (15:00)
[2018-07-24 18:17] VITALS: BP 170/89; TEMP 98
--- NOTE | 2018-07-24 21:52 | DIS ---
DATE OF ADMISSION: 07/20/2018 DATE OF DISCHARGE: 07/24/2018 DISCHARGE DISPOSITION: Home. FOLLOWUP: 1. Follow up with primary care physician, in 1 week. 2. Follow up with Gastroenterology, Dr. Godinez; Oncology, Dr. Watson; and Infectious Disease, Dr. Kam as directed. ALLERGIES: THE PATIENT IS ALLERGIC TO NIACIN. CODE STATUS: Do not resuscitate. The patient was seen on the day of discharge, denies any new complaints. BRIEF HOSPITAL COURSE: The patient is an 82-year-old male, who presented to the emergency room with fever on July 20, 2018. His initial vital signs in the emergency room showed temperature 102.8 with respirations of 18, pulse rate of 95, and blood pressure of 137/69. CT scan of the abdomen and pelvis showed 6.3 cm solid retroperitoneal soft tissue mass concerning for lymphoma. Chest x-ray was negative for acute findings. He was started on broad-spectrum antibiotics. He was seen by multiple consultants including Oncology, Infectious Disease, and Gastroenterology. He underwent EGD that showed grade B erosive esophagitis. There was some silk suture at the 1 to 2 o'clock position without reference to the pyloric channel. He then underwent CT-guided retroperitoneal biopsy. Official biopsy report is pending at this time. His blood cultures 2/2 were positive for enterococcus sensitive to ciprofloxacin. Per Infectious Disease recommendation, he will be discharged to home on ciprofloxacin 500 mg twice daily for 1 more week. He was advised to follow up with Oncology, Gastroenterology, as well as Infectious Disease as outpatient. SIGNIFICANT LABORATORY DATA: WBC 12.2. He had 16% bandemia on admission. Vitamin B12 of 123, folic acid 6.0, iron 29, TIBC 191, saturation 15, ferritin 559, albumin 2.9 with total protein of 5.5. Creatinine on admission 1.7. Repeat was 1.47. Urinalysis was negative for wbc, bacteria. Flow cytometry is pending at this time. FINAL DIAGNOSES: 1. Severe sepsis with acute organ dysfunction. 2. Enterococcus bacteremia. 3. Retroperitoneal mass suspicious for lymphoma, status post CT-guided biopsy. 4. Erosive esophagitis grade B. 5. Vitamin B12 and folic acid deficiency. 6. Acute kidney injury on chronic kidney disease stage 3. Repeat basic metabolic profile as outpatient is recommended. Primary care physician advised to follow. 7. Moderate protein-calorie malnutrition. 8. Former smoker. 9. History of gallstone pancreatitis. 10. Hypertension. 11. Hyperlipidemia. 12. Benign prostatic hypertrophy. 13. Hyponatremia. 14. Chronic anemia. PLAN: Plan of care was discussed with the patient and the family in detail, they stated understanding. DISCHARGE MEDICATIONS: 1. Mucinex twice daily. 2. Ciprofloxacin 500 mg twice daily for 1 week. 3. Vitamin B12 of 1000 mcg daily. 4. Folic acid 1 mg daily. 5. Multivitamin 1 tablet daily. 6. Protonix 40 mg daily. All other home medications were left unchanged. Job ID: [id number]
[2018-07-25] MEDS ORDERED: Folic Acid 1 MG TAB PO SCH (09:00)
[2018-07-25] MEDS ORDERED: Cyanocobalamin 1000 MCG/ML VIAL IM SCH (09:00)
[2018-07-25] MEDS ORDERED: Multivit, Therapeutic 1 TAB PO SCH (09:00)
[2018-07-25] MEDS ORDERED: Cyanocobalamin (Vitamin B-12) 1,000 MCG TAB PO SCH (09:00)
[2018-07-25] MEDS ORDERED: Amlodipine 5 MG TAB PO SCH (09:00)
== END 2018-07-24 18:05 | disposition home or self-care (01) | DRG 872 ==
LOC: ERS 18:17 → T4-B 21:00
PROVIDERS: ADMIT Internal Medicine; ATTEND Internal Medicine
PROC: 0DB98ZX Excision of Duodenum, Via Natural or Artificial Opening Endoscopic, Diagnostic (ICD-10-PCS; 2018-07-22)
PROC: 0WBH4ZX Excision of Retroperitoneum, Percutaneous Endoscopic Approach, Diagnostic (ICD-10-PCS; principal; 2018-07-23)
DX: A41.81 Sepsis due to Enterococcus (principal); N17.9 Acute kidney failure, unspecified; E44.0 Moderate protein-calorie malnutrition; E87.1 Hypo-osmolality and hyponatremia; Z66 Do not resuscitate; R65.20 Severe sepsis without septic shock; K20.9 Esophagitis, unspecified; E53.8 Deficiency of other specified B group vitamins; N18.3 Chronic kidney disease, stage 3 (moderate); E78.5 Hyperlipidemia, unspecified; N40.0 Benign prostatic hyperplasia without lower urinary tract symptoms; D63.1 Anemia in chronic kidney disease; I12.9 Hypertensive chronic kidney disease with stage 1 through stage 4 chronic kidney disease, or unspecified chronic kidney disease; R19.00 Intra-abdominal and pelvic swelling, mass and lump, unspecified site; Z90.49 Acquired absence of other specified parts of digestive tract; Z88.1 Allergy status to other antibiotic agents; Z68.21 Body mass index [BMI] 21.0-21.9, adult; Z79.899 Other long term (current) drug therapy
CPT/HCPCS: 36415; 49180; 71045; 71046; 74177; 77012; 80048; 80053; 80076; 81003; 81015; 82607; 82728; 82746; 82977; 83540; 83550; 83605; 83690; 85025; 85610; 87040; 87077; 87086; 87149; 87186; 87804; 88184; 88305; 88333; 88334; 88341; 88342; 88360; 93005; 96361; 96365; 96367; C9113; J0360; J1650; J2185; J2250; J2543; J2704; J3010; J3370; J3420; Q9966

== ENCOUNTER 2018-09-12 05:45 | Day surgery (SDC) | payer MEDICARE ==
[2018-09-11 13:13] VITALS: BMI 21.7
[2018-09-12] MEDS ORDERED: Bupivacaine HCl 0.5%/Epinephrine 1:200,000/PF 30 ml Vial ONE (06:27)
[2018-09-12] MEDS ORDERED: Lidocaine 2% PF 5 ML VIAL ONE (06:27)
[2018-09-12] MEDS ORDERED: Fentanyl 100 MCG/2 ML VIAL ONE (07:04)
--- NOTE | 2018-09-12 09:17 | RAD ---
CHEST 1 VIEW: HISTORY: MediPort placement. COMPARISON: Radiograph of 07/20/2018. FINDINGS: Satisfactory position of port catheter with tip at the inferior SVC. No pneumothorax. IMPRESSION: Uncomplicated placement of port catheter. POS: [facility]
--- NOTE | 2018-09-12 09:59 | OP ---
DATE OF PROCEDURE: 09/12/2018 PREOPERATIVE DIAGNOSIS: Large B-cell lymphoma. POSTOPERATIVE DIAGNOSIS: Large B-cell lymphoma. PROCEDURE PERFORMED: Left subclavian vein low-profile power MediPort. ANESTHESIA: TIVA, local 0.5% Marcaine with epinephrine 30 mL was mixed with 2% Xylocaine 10 mL. Fluoroscopy used during the procedure. DESCRIPTION OF PROCEDURE: The patient was taken to the operating room, where under intravenous sedation, neck and chest clipped of hair, prepared with ChloraPrep and draped in routine fashion. Local anesthetic was infiltrated in the skin and subcutaneous tissue about the operative site. Infraclavicular approach was used to cannulate the subclavian vein, threading the J-wire, removing the trocar catheter, enlarging the skin entrance site sharply and dissecting a subcutaneous pocket using sharp and blunt dissection. Cautery was used for hemostasis. Dilator and Peel-Away sheath were placed over the J-wire into the superior vena cava. Dilator and J-wire were removed. Catheter was placed with Peel-Away sheath. Peel-Away sheath was removed fluoroscopically. Tip of the catheter was placed in optimal position in the superior vena cava. Catheter tailored to length, connected to the MediPort, placed in the subcutaneous pocket, and secured with 2 interrupted suture of 3-0 Prolene. Subcutaneous tissue was approximated with 3-0 Monocryl, skin with subdermal 4-0 Monocryl. Final fluoroscopic images revealed good line placement. Ortiz needle was used to access the MediPort, aspirated blood, and flushed with heparinized saline solution. The patient tolerated the procedure well. Job ID: [id number]
--- NOTE | 2018-09-12 11:16 | HP ---
HISTORY OF PRESENT ILLNESS: Aravind Ferrara is an 83-year-old male patient has diffuse large cell lymphoma, referred by Dr. Watson for chemotherapy and MediPort access. We will plan left subclavian vein low-profile MediPort as an outpatient. Plan is under IV sedation and local anesthesia. He has a right ureteral obstruction and is having a stent placed at the [facility] tomorrow, 09/11/2018. MEDICATIONS: Hydralazine daily, metoprolol daily, atorvastatin daily, lisinopril daily, Flomax daily, and vitamin B12 daily. PAST SURGICAL HISTORY: Laparoscopic cholecystectomy, lip cancer resection, inguinal hernia repair in the 1970s, colonoscopy up to date. 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 PAST MEDICAL HISTORY: History of hypertension, recently diagnosed lymphoma, CT-guided percutaneous biopsy. Apparently, this is a enlarging and encroaching on the duodenum. FAMILY HISTORY: Noncontributory. REVIEW OF SYSTEMS: Noncontributory. PHYSICAL EXAMINATION: VITAL SIGNS: Weight 141 pounds, height 67 inches, blood pressure 142/62, pulse 71, temperature 98.6 degrees. HEAD, EARS, EYES, NOSE AND THROAT: Unremarkable. LUNGS: Clear to auscultation. CARDIAC: Regular rate and rhythm without murmur or gallop. ABDOMEN: Soft and nontender. EXTREMITIES: Unremarkable. ASSESSMENT/PLAN: Diffuse B-cell lymphoma. PLAN: MediPort placement under IV sedation and local anesthesia outpatient. Job ID: [id number]
== END 2018-09-12 09:30 | disposition home or self-care (01) ==
LOC: SDC 05:45
PROVIDERS: ATTEND Specialist
PROC: 05H633Z Insertion of Infusion Device into Left Subclavian Vein, Percutaneous Approach (ICD-10-PCS; principal; 2018-09-12)
PROC: B517ZZA Fluoroscopy of Left Subclavian Vein, Guidance (ICD-10-PCS; 2018-09-12)
DX: C83.30 Diffuse large B-cell lymphoma, unspecified site (principal); I10 Essential (primary) hypertension
CPT/HCPCS: 71045; C1788; J0670; J0690; J1642; J2001; J3010

== ENCOUNTER 2018-11-13 11:08 | Outpatient (CLI) | payer MEDICARE, OTHER ==
--- NOTE | 2018-11-13 16:09 | PET ---
PET CT: HISTORY: An 83-year-old male with diffuse large B-cell lymphoma. Completed 3 cycles of chemotherapy. Exam re quested to evaluate for response to treatment. TECHNIQUE: PET scanning using attenuation correction is performed from the base of the brain through the proxima l thighs following the intravenous administration of 11 mCi [id number] in the right antec ubital fossa. COMPARISON: PET CT of 08/27/2018 from the [facility] in [place], [place]. FINDINGS: There has been interval reduction in the hypermetabolic activity and size of the mesenteric mass in t he right lower quadrant with an SUV of 2.6. Increased uptake in the esophagus, likely due to esophag itis as a result. No kelly hypermetabolism is seen in the neck, mediastinum, hilar regions, axilla, or pelvis. No hype rmetabolic lung nodules, liver, adrenal, or skeletal lesions are seen. The previously noted hypermet abolic focus in the mid right hepatic lobe has resolved. The CT scan used for attenuation correction demonstrates no evidence of pleural effusions or ascites. Pneumobilia is again seen. No hydroureteral nephrosis is noted on either side. There has been int erval placement of a right-sided ureteral stent. The prostate is enlarged. IMPRESSION: Significant interval improvement with incomplete response to therapy since 08/27/2018. POS: [facility]
== END 2018-11-13 11:09 | disposition home or self-care (01) ==
LOC: PET 11:08
PROVIDERS: ATTEND Internal Medicine Hematology & Oncology
DX: C83.33 Diffuse large B-cell lymphoma, intra-abdominal lymph nodes (principal)
CPT/HCPCS: 78815; A9552

== ENCOUNTER 2018-12-21 15:40 | Outpatient (CLI) | payer MEDICARE ==
--- NOTE | 2018-12-21 16:29 | ULT ---
US Venous Doppler Lt Unilat History: Upper extremity edema Comparison: None. Findings: Real-time grayscale, color, and spectral analysis of the left upper extremity venous system was performed. The internal jugular, subclavian, axillary veins along with brachial, basilic, and cephalic veins were interrogated. Normal flow, augmentation, and compression. Impression: No deep venous thrombosis.
== END 2018-12-21 15:41 | disposition home or self-care (01) ==
LOC: BICULT 15:40
PROVIDERS: ATTEND Internal Medicine Hematology & Oncology
DX: M79.89 Other specified soft tissue disorders (principal)

== ENCOUNTER 2019-01-17 09:01 | Outpatient (CLI) | payer OTHER ==
--- NOTE | 2019-01-17 12:55 | PET ---
PET SCAN WITH CT ATTENUATION CORRECTION: COMPARISON: 11/13/2018, 08/27/2018. HISTORY: Diffuse large B-cell lymphoma, intraabdominal lymphadenopathy. TECHNIQUE: PET scan with CT attenuation was performed from the base of the brain to the proximal thighs followin g the intravenous administration of 11.1 mCi of [id number]. FINDINGS: HEAD AND NECK: No abnormal FDG localization. CHEST: No abnormal FDG localization in the mediastinum or hilum. CT used for attenuation correction demonst rates patchy ground-glass opacity in the right upper lobe, nonhypermetabolic. There is also dependen t atelectatic change. ABDOMEN AND PELVIS: Previously noted soft tissue mass in the right lower quadrant abdominal mesentery is less evident. T he region of concern in the right lower quadrant currently has a maximum SUV of 2.3. There does not appear to be any hypermetabolic activity in the abdomen or pelvis. Physiologic distribution of radio tracer is noted. OSSEOUS STRUCTURES: No abnormal FDG localization. IMPRESSION: 1. No abnormal fluorodeoxyglucose localization in the abdomen. Previously noted hypermetabolic mass is no longer evident. There is response to therapy. Currently, the maximum SUV in the region of in terest is 2.3. 2. Deauville score 1: no uptake. POS: [facility]
== END 2019-01-17 09:02 | disposition home or self-care (01) ==
LOC: PET 09:01
PROVIDERS: ATTEND Internal Medicine Hematology & Oncology
DX: C83.33 Diffuse large B-cell lymphoma, intra-abdominal lymph nodes (principal)
CPT/HCPCS: 78815; A9552

== ENCOUNTER 2019-01-25 14:54 | Outpatient (CLI) | payer OTHER ==
--- NOTE | 2019-01-25 15:49 | ULT ---
Ultrasound Doppler duplex venous left upper extremity: HISTORY: 83-year-old male with left upper extremity edema. TECHNIQUE: Grayscale, color-flow, and spectral analysis, of major veins of left upper extremity. Compression and release applied to all veins except the subclavian. FINDINGS: There is demonstration of blood flow, with no evidence of thrombosis, of the left internal jugular, s ubclavian, brachial, axillary, cephalic, basilic, radial, and ulnar, veins. IMPRESSION: Negative. No deep vein thrombosis of left upper extremity.
== END 2019-01-25 14:55 | disposition home or self-care (01) ==
LOC: ULT 14:54
PROVIDERS: ATTEND Internal Medicine Hematology & Oncology
DX: I82.90 Acute embolism and thrombosis of unspecified vein (principal); M79.89 Other specified soft tissue disorders; C83.33 Diffuse large B-cell lymphoma, intra-abdominal lymph nodes; D51.3 Other dietary vitamin B12 deficiency anemia; D52.0 Dietary folate deficiency anemia

== ENCOUNTER 2019-08-06 10:49 | Outpatient (CLI) | payer OTHER ==
--- NOTE | 2019-08-06 12:46 | PET ---
Radionucleotide PET scan with CT attenuation correction HISTORY: Diffuse large B-cell lymphoma. Restaging. COMPARISON: 01/17/2019 and 11/13/2018. FINDINGS: Physiologic uptake of radiotracer is present throughout the enteric system and along each u rinary tract. Increased activity is noted at the far anterior aspect of the oral cavity, apparently associated with the tongue.. The area is predominantly obscured by beam hardening artifact on the CT images. This uptake is favored to be related to muscular activity rather than pathology. No abnormal uptake within the mediastinum or abdomen. Areas of activity around the second and third p ortion of the duodenum in region of disease on prior exams is associated with bowel wall. Nondiagnostic CT attenuation correction images show prominent arterial calcification. Small bilateral pleural effusions are present, right greater than left. Pneumobilia is greater than on the 01/17/2019 study, similar to the 06/13/2018 study. 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 IMPRESSION : No scintigraphic evidence of recurrent disease. Interval development of small bilateral pleural effusions. Cause is not evident. Atherosclerosis.
== END 2019-08-06 10:50 | disposition home or self-care (01) ==
LOC: PET 10:49
PROVIDERS: ATTEND Internal Medicine Hematology & Oncology
DX: C83.33 Diffuse large B-cell lymphoma, intra-abdominal lymph nodes (principal); J90 Pleural effusion, not elsewhere classified; I70.90 Unspecified atherosclerosis
CPT/HCPCS: 78815; A9552

== ENCOUNTER 2022-01-22 22:34 | Emergency (ER) | payer OTHER | END 2022-01-22 22:59 | disposition left against medical advice (07) | LOC: ERS 22:34 | DX: Z53.21 Procedure and treatment not carried out due to patient leaving prior to being seen by health care provider (principal) ==